=== PATIENT | female | born 1965 | race Caucasian/White ===

== ENCOUNTER 2017-02-22 13:44 | Outpatient (CLI) | END 2017-02-22 13:45 | disposition left against medical advice (07) | LOC: AMBL 13:44 | PROVIDERS: ATTEND Internal Medicine | DX: R07.89 Other chest pain (principal); V44.5XXA Car driver injured in collision with heavy transport vehicle or bus in traffic accident, initial encounter ==

== ENCOUNTER 2017-05-27 17:33 | Outpatient (CLI) | END 2017-05-27 17:34 | disposition short-term general hospital (02) | LOC: AMBL 17:33 | PROVIDERS: ATTEND Internal Medicine | DX: M54.5 Low back pain (principal); M25.532 Pain in left wrist; M79.642 Pain in left hand; M79.89 Other specified soft tissue disorders; T14.8 Other injury of unspecified body region; V57.5XXA Driver of pick-up truck or van injured in collision with fixed or stationary object in traffic accident, initial encounter; Z86.69 Personal history of other diseases of the nervous system and sense organs ==